=== PATIENT | male | born 1990 | race Caucasian/White ===

== ENCOUNTER 2017-04-28 08:55 | Emergency (ER) | payer SELFPAY ==
[~2017-04-28] VITALS: Ht 177.8 cm; Wt 92.5 kg
--- NOTE | 2017-04-28 09:20 | Emergency Room Report ---
History of Present Illness General Chief Complaint: Back Pain-No Injury Source: Patient Present Illness HPI 27-year-old male walks in with 4 days of left lower back pain Patient believes that pain started after he slept awkwardly on couch. patient very active, plays basketball 3 times a week, foam rolling Denies any direct trauma to lower back Back pain was associated also with neck pain 4 days ago but neck pain resolved Stated urine very dark, but denies hematuria, history of kidney stones or other kidney disease. Denies dysuria, polyuria, fever or chills Is not sexually active Is not taken any [id number] pain medications Allergies: Coded Allergies: No Known Allergies (Unverified , 04/28/17) Patient History Past Medical History: none Past Surgical History: none Pertinent Family History: none Social History: Denies: smoking, alcohol use, drug use Immunizations: UTD Reviewed Nursing Documentation: PMH: Agreed, PSxH: Agreed Nursing Documentation-PMH Past Medical History: No Stated History Review of Systems All Other Systems: negative except mentioned in HPI Physical Exam Vital Signs Date Time Temp Pulse Resp B/P (MAP) Pulse Ox O2 Delivery O2 Flow Rate FiO2 04/28/17 09:00 97.7 63 18 122/73 98 Room Air 97.7 Sp02 EP Interpretation: reviewed, normal General Appearance: normal inspection, well appearing, no apparent distress, alert, GCS 15, non-toxic Head: normocephalic, atraumatic Eyes: bilateral eye PERRL, bilateral eye EOMI ENT: normal ENT inspection, hearing grossly normal, normal pharynx, no angioedema, normal voice, TMs + canals normal, uvula midline, moist mucus membranes Neck: normal inspection, full range of motion, supple, thyroid normal, no meningismus, no bony tend Respiratory: normal inspection, lungs clear, normal breath sounds, no rhonchi, no respiratory distress, no retraction, no accessory muscle use, no wheezing, speaking full sentences Cardiovascular #1: regular rate, rhythm, no edema, no JVD, normal capillary refill Gastrointestinal: normal inspection, normal bowel sounds, non tender, soft, no mass, no peritonitis, non-distended, no guarding, no hernia, no pulsatile mass Genitourinary: no CVA tenderness Musculoskeletal: normal inspection, back normal, normal range of motion, pelvis stable, Zachariah's Sign negative, other - Mild spasm, left paravertebral muscles Neurologic: normal inspection, alert, oriented x3, responsive, gamemaster III-XII nml as tested, motor strength/tone normal, cerebellar normal, normal gait, speech normal Psychiatric: normal inspection, judgement/insight normal, mood/affect normal, no suicidal/homicidal ideation, no delusions Skin: normal inspection, normal color, no rash Lymphatic: normal inspection, no adenopathy Medical Decision Making Diagnostic Impression: Primary Impression: Back pain Qualified Codes: M54.5 - Low back pain ER Course VSS, afebrile Likely lower back strain UA: no hematuria, no infection Unlike U kidney stones given 4 days of duration, no hematuria, and patient's well appearance, no history of renal stones Would be unlikely to have UTI Unlikely STD given no sexual activity Was given analgesia and muscle relaxer in the ER Prescribe same ER course: Patient has remained stable during ED stay. Disposition: Patient is to be discharged to home. Prescriptions given are motrin, robaxin Patient is instructed to follow up with their primary care doctor within 5 days. Patient is instructed to follow up with *specialist within 3 days. Strict return precautions discussed with patient such as fever, chills, worsening/severe pain, nausea, vomiting, which may indicate severe illness. Patient verbalizes understanding and agrees with plan. Please note that this Emergency Department Report was dictated using [employer] inspector technology software, occasionally this can lead to erroneous entry secondary to interpretation by the dictation equipment Last Vital Signs Date Time Temp Pulse Resp B/P (MAP) Pulse Ox O2 Delivery O2 Flow Rate FiO2 04/28/17 09:00 97.7 63 18 122/73 98 Room Air 97.7 Status: improved Disposition: HOME, SELF-CARE Scripts Methocarbamol* (ROBAXIN-750*) 750 Mg Tablet 750 MG PO TID for back strain for 7 Days, #30 TAB 0 Refills Prov: SULEIMAN MONROE M.D. 04/28/17 Ibuprofen* (MOTRIN*) 600 Mg Tablet 600 MG ORAL THREE TIMES A DAY for back strain for 7 Days, #30 TAB 0 Refills Prov: SULEIMAN MONROE M.D. 04/28/17 SULEIMAN MONROE M.D. Apr 28, 2017 09:20
[2017-04-28] MEDS: Methocarbamol 750mg tab ORAL ONE (09:30)
[2017-04-28 09:36] LABS: APPEARANCE,URINE CLEAR; BILIRUBIN, URINE NEGATIVE (NEGATIVE); GLUCOSE, URINE (UA) NEGATIVE (NEGATIVE); KETONES,URINE NEGATIVE (NEGATIVE); LEUKOCYTE ESTERASE ,URINE NEGATIVE (NEGATIVE); NITRITE,URINE NEGATIVE (NEGATIVE); PH,URINE 6 (4.5-8.0); PROTEIN,URINE NEGATIVE (NEGATIVE); UROBILINOGEN,URINE NORMAL MG/DL (0.0-1.0)
[2017-04-28 09:59] LABS: COLOR,URINE YELLOW
[2017-04-28] MEDS ORDERED: IBUPROFEN600 MG ORAL (10:01)
[2017-04-28] MEDS ORDERED: ROBAXIN-750750 MG PO (10:01)
[2017-04-28 10:11] VITALS: BP 117/68
== END 2017-04-28 10:11 | disposition home or self-care (01) ==
LOC: EMR 10:00
DX: M54.5 Low back pain (principal)
CPT/HCPCS: 81003; 99284